=== PATIENT | male | born 1955 | race Hispanic/Latino ===

== ENCOUNTER 2018-04-14 23:57 | Emergency (ER) | payer OTHER ==
[2018-04-15 00:16] VITALS: TEMP 98.7
--- NOTE | 2018-04-15 00:21 | C.PDOC ---
History Of Present Illness 63 year old male presents to the ED c/o SOB for the past couple of days but that worsened today in the afternoon. Patient states he his a smoker. Patient able to speak in complete sentences. Patient denies fever, chills, CP, weakness , numbness, cough. Time Seen by Provider: 04/15/18 00:20 Chief Complaint (Nursing): Shortness Of Breath History Per: Patient History/Exam Limitations: no limitations Onset/Duration Of Symptoms: Days Current Symptoms Are (Timing): Still Present Initiating Event: Upper Respiratory Illness Quality: Other Current Respiratory Medications: See Home Med List Pain Scale Rating Of: 4 Recent travel outside of the [place]: No Additional History Per: Patient Past Medical History Reviewed: Historical Data, Nursing Documentation, Vital Signs Vital Signs: Last Vital Signs Temp 98.7 F 04/15/18 00:12 Pulse 75 04/15/18 04:34 Resp 18 04/15/18 04:34 BP 114/63 04/15/18 04:34 Pulse Ox 94 L 04/15/18 04:45 - Medical History PMH: No Chronic Diseases Surgical History: No Surg Hx Family History: States: Unknown Family Hx - Social History Hx Alcohol Use: No Hx Substance Use: No - Immunization History Hx Influenza Vaccination: No Hx Pneumococcal Vaccination: No Review Of Systems Constitutional: Negative for: Fever, Chills Cardiovascular: Negative for: Chest Pain, Palpitations Respiratory: Positive for: Shortness of Breath. Negative for: Cough Gastrointestinal: Negative for: Nausea, Vomiting Skin: Negative for: Rash Neurological: Negative for: Weakness, Numbness Physical Exam - Physical Exam Appears: Non-toxic, No Acute Distress Skin: Warm, Dry Head: Normacephalic Eye(s): bilateral: Normal Inspection Oral Mucosa: Moist Throat: No Erythema, No Exudate Neck: Supple Chest: Symmetrical Cardiovascular: Rhythm Regular Respiratory: Decreased Breath Sounds, No Rales, No Rhonchi, Wheezing (at the bases) Gastrointestinal/Abdominal: Soft, No Tenderness, No Guarding, No Rebound Extremity: No Tenderness, No Swelling Extremity: Bilateral: Atraumatic, Normal Color And Temperature, Normal ROM Neurological/Psych: Oriented x3, Normal Speech, Normal Cognition Gait: Steady ED Course And Treatment - Laboratory Results Result Diagrams: 04/15/18 00:45 04/15/18 00:45 ECG: Interpreted By Me, Viewed By Me ECG Rhythm: Sinus Rhythm (79), Nonspecific Changes O2 Sat by Pulse Oximetry: 94 Pulse Ox Interpretation: Normal - Radiology CXR: Interpreted by Me, Viewed By Me CXR Interpretation: Yes: Cardiomegaly, Other (mild vasc congestion). No: Infiltrates, Fracture Progress Note: Plan: - ABG. - LAbs. - EKG. - Duoneb. - CXR. - UA Reevaluation Time: 04:47 Reassessment Condition: Improved Critical Care Time - Critical Care Note Total Time (in mins): 30 Documented critical care: time excludes all time spent performing seperately billable procedures. Medical Decision Making Medical Decision Making: Upon provider reevaluation patient is feeling better, is medically stable, and requires no further treatment in the ED at this time. Patient will be discharged home with Rx for albuterol, prednisone . Counseling was provided and all questions were answered regarding diagnosis and need for follow up with the referred clinic. There is agreement to discharge plan. Return if symptoms persist or worsen. Disposition Counseled Patient/Family Regarding: Studies Performed, Diagnosis, Need For Followup, Rx Given, Smoking Cessation - Disposition Referrals: [facility] [Outside] [facility] [Outside] Disposition: HOME/ ROUTINE Disposition Time: 00:21 Condition: FAIR Additional Instructions: Please return if symptoms recur Prescriptions: Albuterol HFA [Ventolin HFA 90 mcg/actuation (8 g)] 2 puff IH [id number] #1 puff Prednisone [Deltasone] 20 mg PO DAILY #5 tablet Instructions: Asthma, Adult (DC) Forms: [employer] (Moz[place]ican) - Clinical Impression Clinical Impression: Dyspnea, Asthma exacerbation - Scribe Statement The provider has reviewed the documentation as recorded by the Scribe Rio Lopez All medical record entries made by the Scribe were at my direction and personally dictated by me. I have reviewed the chart and agree that the record accurately reflects my personal performance of the history, physical exam, medical decision making, and the department course for this patient. I have also personally directed, reviewed, and agree with the discharge instructions and disposition.
[2018-04-15] MEDS: Albuterol-Ipratrop 3 mg / 0.5 (3 ml) UD IH SCH ×3 (00:25→01:02)
[2018-04-15] MEDS ORDERED: Albuterol-Ipratrop 3 mg / 0.5 (3 ml) UD ONE ×2 (00:26→00:57)
[2018-04-15 00:50] LABS: BASO # 0.1 K/uL (0.0-0.2); EOS # 0.1 K/uL (0.0-0.7); EOS % 2.4 % (0.0-4.0); HEMOGLOBIN 13.7 g/dL (12.0-18.0); LYMPH # 1.3 K/uL (1.0-4.3); LYMPH % 24.6 % (20.0-40.0); MEAN CELL VOLUME 90.3 fL (80.0-94.0); MEAN CORPUSCULAR HGB CONC 34.4 g/dL (33.0-37.0); MEAN PLATELET VOLUME 7.8 fL (7.2-11.7); MONO # 0.7 K/uL (0.0-0.8); MONO % 12.9 % (0.0-10.0); NEUT # 3.1 K/uL (1.8-7.0); NEUT % 59.1 % (50.0-75.0); RBC 4.42 Mil/uL (4.40-5.90); RED CELL DISTRIBUTION WIDTH 14.7 % (11.5-14.5); WHITE BLOOD COUNT 5.2 K/uL (4.8-10.8)
[2018-04-15 01:01] LABS: ABG ALLEN TEST POS; ARTERIAL BLOOD GAS HCO3 26.6 mmol/L (21-28); ARTERIAL BLOOD GAS O2 SAT 96.8 % (95-98); ARTERIAL BLOOD GAS PCO2 39 mm/Hg (35-45); ARTERIAL BLOOD GAS PH 7.44 (7.35-7.45); ARTERIAL BLOOD GAS PO2 71 mm/Hg (80-100); ARTERIAL BLOOD GAS TCO2 27.7 mmol/L (22-28)
[2018-04-15 01:06] LABS: ALB/GLOB RATIO 1.2 (1.0-2.1); ALBUMIN 4.5 g/dL (3.5-5.0); ALT/SGPT 57 U/L (21-72); AST/SGOT 55 U/L (17-59); BLOOD UREA NITROGEN 14 mg/dL (9-20); CALCIUM 9.4 mg/dl (8.6-10.4); GFR NON-AFRICAN AMERICAN > 60; INR 1.1; PROTHROMBIN TIME 11.8 SECONDS (9.7-12.2)
[2018-04-15] MEDS ORDERED: Enoxaparin 40 mg Syringe SC STA (01:43)
[2018-04-15] MEDS ORDERED: Iodixanol 320 MG/ML 100 ML BOTTLE IV ONE (01:51)
[2018-04-15 01:58] LABS: SQUAMOUS EPITHIAL 1 /hpf (0-5); URINE BILIRUBIN NEGATIVE (NEGATIVE); URINE BLOOD NEGATIVE (NEGATIVE); URINE CLARITY Hazy (Clear); URINE COLOR Yellow (YELLOW); URINE GLUCOSE (UA) NORMAL (Normal); URINE LEUKOCYTE ESTERASE NEG Leu/uL (Negative); URINE PROTEIN NEGATIVE (NEGATIVE); URINE UROBILINOGEN NORMAL mg/dL (0.2-1.0)
[2018-04-15] MEDS ORDERED: Enoxaparin 30 mg Syringe ONE (02:10)
[2018-04-15] MEDS ORDERED: Enoxaparin 80 mg Syringe ONE (02:10)
[2018-04-15 02:16] LABS: B-TYPE NATRIURETIC PEPTIDE 107 pg/mL (0-900)
[2018-04-15 04:40] VITALS: BP 114/63; PULSE 75; RESP 18
[2018-04-15 04:45] VITALS: O2SAT 94
--- NOTE | 2018-04-15 07:49 | RAD ---
Date of service: 04/15/2018 PROCEDURE: CHEST RADIOGRAPH, 1 VIEW HISTORY: SOB COMPARISON: None available. FINDINGS: LUNGS: No consolidation PLEURA: No pneumothorax or pleural fluid seen. CARDIOVASCULAR: Mild cardiomegaly. Moderate pulmonary venous congestion OSSEOUS STRUCTURES: Thoracic spondylosis para VISUALIZED UPPER ABDOMEN: Normal. OTHER FINDINGS: None. IMPRESSION: Cardiomegaly and pulmonary venous congestion
--- NOTE | 2018-04-15 11:54 | CT ---
Date of service: 04/15/2018 PROCEDURE: CT Chest with contrast (Pulmonary Angiogram) HISTORY: smoker, elevated d dimer COMPARISON: None available. TECHNIQUE: Axial computed tomography images were obtained of the chest in the pulmonary arterial phase of enhancement. Coronal and sagittal reformatted images were created and reviewed. Intravenous contrast dose: 100 mL Visipaque 320 Radiation dose: Total exam DLP = 547.50 mGy-cm. This CT exam was performed using one or more of the following dose reduction techniques: Automated exposure control, adjustment of the mA and/or kV according to patient size, and/or use of iterative reconstruction technique. FINDINGS: PULMONARY ARTERIES: Unremarkable. No pulmonary embolism. AORTA: No acute findings. No thoracic aortic aneurysm. LUNGS: No infiltrate. Nonspecific focal emphysematous change in right upper lobe. No generalized emphysema. Calcified granuloma in left lower lobe. PLEURAL SPACES: Unremarkable. No effusion or pneumothorax. HEART: Unremarkable. No cardiomegaly. No significant pericardial effusion. LYMPH NODES: No lymphadenopathy. BONES, CHEST WALL: Unremarkable. No fracture or destructive lesion OTHER FINDINGS: None IMPRESSION: No evidence of pulmonary embolism. The preliminary findings for this examination were reported by [facility] at 3:28 a.m. on 04/15/2018. There is concurrence of this report with the preliminary findings.
--- NOTE | 2018-04-17 00:01 | CARD ---
APPROVED REPORT Date of service: 04/15/2018 EKG Measurement Heart [id number] <Conclusion> Normal sinus rhythm with sinus arrhythmia Normal ECG
== END 2018-04-15 06:45 | disposition home or self-care (01) ==
LOC: C.ER 23:57
DX: J45.901 Unspecified asthma with (acute) exacerbation (principal); F17.200 Nicotine dependence, unspecified, uncomplicated
CPT/HCPCS: 71045; 71275; 80053; 81001; 82803; 83880; 84484; 85025; 85378; 85610; 85730; 96372; 99284; J1650; Q9967

== ENCOUNTER 2018-04-15 16:14 | Emergency (ER) | payer SELFPAY ==
[2018-04-15 16:30] VITALS: BP 134/84; PULSE 91; RESP 20; TEMP 99.1; O2SAT 96
== END 2018-04-15 16:44 | disposition left against medical advice (07) ==
LOC: C.ER 16:14
DX: Z02.89 Encounter for other administrative examinations (principal); R06.02 Shortness of breath

== ENCOUNTER 2018-05-01 00:18 | Emergency (ER) | payer SELFPAY ==
[2018-05-01 00:50] VITALS: RESP 20; O2SAT 98
--- NOTE | 2018-05-01 01:30 | C.PDOC ---
History Of Present Illness 63 year old male presents to the ED for evaluation of throat tightness gradually developed since 19:00 today " after had my dinner". Patient reports after eating meat for dinner he felt something stuck on his throat. Patient noted some difficulty swallowing associated with dry mouth. At present time, pt drinking bottle water, tolerate well. Patient denies fever, chills, CP, dyspnea , SOB, palpitation, diaphoreis, cough, drooling, nausea, vomit, abdominal pain or any other active complaints. Time Seen by Provider: 05/01/18 00:52 Chief Complaint (Nursing): ENT Problem History Per: Patient History/Exam Limitations: None Onset/Duration Of Symptoms: Days (19:00) Current Symptoms Are (Timing): Still Present Quality (Mouth/Throat): Other (Foreign body sensation) Symptoms Have Been: Continuous Severity: Mild Anticoagulant/Antiplatlet Use?: No Recent Aspirin Use: No Past Medical History Reviewed: Historical Data, Nursing Documentation, Vital Signs Vital Signs: Last Vital Signs Temp 98 F 05/01/18 03:14 Pulse 78 05/01/18 03:14 Resp 20 05/01/18 03:14 BP 140/90 05/01/18 03:14 Pulse Ox 98 05/01/18 03:14 - Medical History PMH: No Chronic Diseases Surgical History: No Surg Hx Family History: States: Unknown Family Hx - Social History Hx Alcohol Use: No Hx Substance Use: No - Immunization History Hx Tetanus Toxoid Vaccination: No Hx Influenza Vaccination: No Hx Pneumococcal Vaccination: No Review Of Systems Constitutional: Negative for: Fever, Chills ENT: Positive for: Throat Pain (FB sensation). Negative for: Mouth Pain Respiratory: Negative for: Cough, Shortness of Breath Gastrointestinal: Negative for: Nausea, Vomiting, Abdominal Pain Skin: Negative for: Rash Neurological: Negative for: Weakness, Numbness Physical Exam - Physical Exam Appears: Well, Non-toxic, No Acute Distress Skin: Normal Color, Warm, Dry, No Rash, No Ecchymosis Head: Normacephalic Eye(s): bilateral: PERRL Nose: No Flaring, No Discharge Oral Mucosa: Moist, No Drooling Tongue: Normal Appearing Lips: Normal Appearing Throat: No Erythema, No Exudate, No Drooling Neck: Normal ROM, Trachea Midline, No Trachea Deviated, No Midline Cervical Tenderness, Supple Chest: Symmetrical Cardiovascular: Rhythm Regular Respiratory: No Decreased Breath Sounds, No Accessory Muscle Use, No Rales, No Rhonchi, No Wheezing Gastrointestinal/Abdominal: Soft, No Tenderness, No Distention, No Guarding Extremity: Normal ROM, No Tenderness, No Deformity, No Swelling Neurological/Psych: Oriented x3, Normal Speech Gait: Steady ED Course And Treatment O2 Sat by Pulse Oximetry: 98 (ON RA) Pulse Ox Interpretation: Normal - Other Rad Neck soft tissue X-Ray: Interpreted by Me, Viewed By Me Interpretation: ? FB noted - CT Scan/US CT neck Other Rad Studies (CT/US): Read By Radiologist, Radiology Report Reviewed CT/US Interpretation: EXAM: CT Neck Without Intravenous Contrast. EXAM DATE/ TIME: 05/01/2018 1:15 AM. CLINICAL HISTORY: 63 years old, male; Pain; Painful swallowing; Additional info: Fb sensation. TECHNIQUE: Axial computed tomography images of the neck without intravenous contrast. All CT scans at this facility use at least one of these dose optimization techniques: automated. exposure control; mA and/or kV adjustment per patient size ( includes targeted exams where dose is. matched to clinical indication); or iterative reconstruction. Coronal and sagittal reformatted images were created and reviewed. COMPARISON: No relevant prior studies available. FINDINGS: Nasopharynx: Normal. Oropharynx: Normal. No significant tonsillar enlargement. Hypopharynx: Normal. Larynx: Normal. Normal epiglottis. Trachea: Normal. Retropharyngeal space: Normal. Submandibular/Parotid glands: Normal. Glands are normal in size. Thyroid: Normal. No enlarged or calcified nodules. Bones/ joints: Degenerative changes of the osseous structures. Soft tissues: Normal. No significant soft tissue swelling. Vasculature: No acute findings. Lymph nodes: Normal. No lymphadenopathy. Lung apices: Normal as visualized. Other findings: Right apical 1.2 cm nodule. IMPRESSION: No definite acute pathology. Thank you for allowing us to participate in the care of your patient. Dictated and Authenticated by: Macho Chirinos MD. 05/01/2018 2:35 AM Eastern Time ([place] & [place]) Progress Note: Plan: - CT neck soft tissue. On re-eval, pt reports moderate improvement n sx, cont. drinking bottle water, tolearte well. pt is afebrile, hemodynamicaly stable. NOn-toxic. PulsEOx 98% RA. ENT: no acute findings, uvula midline, no edema. Neck: Supple, throid midline, (-) JVD, (-) carotid bruits. Lungs: CTA B/L, BS equal B/L. CVS: (+)S1S2,reg. Abd: benign. CT neck review (-) FB or acute pathology noted. results review and discussed with pt. Pt has clinical findings c/w throat pain, nos,. Pt advised and ref. to F/ u with PMD, GI, ENT in 1-2 days for re-eval. return if any new changes. Disposition Counseled Patient/Family Regarding: Diagnosis, Need For Followup - Disposition Referrals: Landry Hernandez MD [Staff Provider] - Iggy Lobato MD [Staff Provider] - Disposition: HOME/ ROUTINE Disposition Time: 02:01 Condition: STABLE Additional Instructions: ENCOURAGE FLUIDS FOLLOW UP WITH PMD, ENT AND GI IN 1-2 DAYS FOR RE-EVALUATION. RETURN TO ED IF ANY WORSENING OR NEW CHANGES. Instructions: Sore Throat, Adult (DC) Forms: [employer] (Kiswahili) - Clinical Impression Clinical Impression: Throat pain in adult - PA / [employer] / Resident Statement MD/DO has reviewed & agrees with the documentation as recorded. - Scribe Statement The provider has reviewed the documentation as recorded by the Scribe Rio Lopez All medical record entries made by the Scribe were at my direction and personally dictated by me. I have reviewed the chart and agree that the record accurately reflects my personal performance of the history, physical exam, medical decision making, and the department course for this patient. I have also personally directed, reviewed, and agree with the discharge instructions and disposition.
[2018-05-01 03:15] VITALS: BP 140/90; PULSE 78; TEMP 98
--- NOTE | 2018-05-01 08:36 | RAD ---
History neck pain Technique two views Findings: Anterior cervical spondylosis with mild mid cervical segment disc space narrowing. No airway compromise appreciated. Bilateral diffuse cervical apophyseal joint osseous hypertrophic arthrosis Impression: No airway compromise. No gross radiopaque foreign body. Cervical arthrosis
--- NOTE | 2018-05-01 14:30 | CT ---
Date of service: 05/01/2018 PROCEDURE: CT NECK WITHOUT CONTRAST HISTORY: FB sensation COMPARISON: None available. TECHNIQUE: CT of the neck without intravenous contrast. Coronal and sagittal reformats generated. Radiation dose: DLP mGy-cm This CT exam was performed using one or more of the following dose reduction techniques: Automated exposure control, adjustment of the mA and/or kV according to patient size, and/or use of iterative reconstruction technique. FINDINGS: NASOPHARYNX: Unremarkable. SUPRAHYOID NECK: Unremarkable oropharynx, oral cavity, parapharyngeal space and retropharyngeal space. INFRAHYOID NECK: Unremarkable larynx, hypopharynx, and supraglottic space. Vocal cords intact. MASS: None. GLANDS: Parotid and submandibular glands unremarkable. Normal size thyroid gland, without nodule. LYMPH NODES: Normal. No lymphadenopathy. CERVICAL SPINE: No fracture or focal lesion. OTHER FINDINGS: None. IMPRESSION: Unremarkable non-contrast enhanced CT of the neck.
== END 2018-05-01 03:14 | disposition home or self-care (01) ==
LOC: C.ER 00:18
DX: R07.0 Pain in throat (principal)